=== PATIENT | female | born 1960 | race Caucasian/White ===

== ENCOUNTER → 2017-02-26 | Outpatient (CLI) | payer BC ==
[2017-02-26 09:02] LABS: ANION GAP 10.4 (10.0-19.0); CALCIUM 10.5 mg/dL (8.5-10.5); CREATININE 0.9 mg/dL (0.5-1.1); POTASSIUM 4.4 mMol/L (3.7-5.1)
== END | disposition disaster alternative care site (69) ==
LOC: GLAB 08:14
PROVIDERS: Internal Medicine Endocrinology, Diabetes & Metabolism
DX: E05.90 Thyrotoxicosis, unspecified without thyrotoxic crisis or storm (principal); D35.00 Benign neoplasm of unspecified adrenal gland; E11.9 Type 2 diabetes mellitus without complications; E21.3 Hyperparathyroidism, unspecified; E24.9 Cushing's syndrome, unspecified